=== PATIENT | female | born 1950 | race Caucasian/White ===

== ENCOUNTER 2017-11-22 01:42 | Emergency (ER) | payer MEDICARE ==
[~2017-11-22] VITALS: Ht 161.3 cm; Wt 84.5 kg
[~2017-11-22 01:42] MED LIST: AMOX500T PO; ATEN-102 PO; ATEN-104 PO
[2017-11-22 01:45] VITALS: BP 184/95; PULSE 65; RESP 18; TEMP 97.7; O2SAT 95
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
[2017-11-22] MEDS ORDERED: ZITHTAB PO (02:13)
[2017-11-22 02:46] VITALS: BP 151/96; TEMP 98.1
[2017-11-22] MEDS ORDERED: SUMA50TA2 PO (02:48)
[2017-11-22] MEDS ORDERED: METO100T PO (02:48)
== END 2017-11-22 02:49 | disposition home or self-care (01) ==
LOC: PHED 01:42
DX: J06.9 Acute upper respiratory infection, unspecified (principal); I10 Essential (primary) hypertension
CPT/HCPCS: 99283

== ENCOUNTER 2017-12-12 15:09 | Emergency (ER) | payer MEDICARE ==
[~2017-12-12] VITALS: Ht 157.5 cm; Wt 83.0 kg
[~2017-12-12 15:09] MED LIST changes: -AMOX500T PO; -ATEN-102 PO; -ATEN-104 PO; +METO100T PO; +SUMA50TA2 PO; +ZITHTAB PO
[2017-12-12 15:20] VITALS: BP 146/70; PULSE 45; RESP 16; TEMP 97.3; O2SAT 98
[2017-12-12] MEDS ORDERED: SUMAtriptan SUCCINATE 50 MG TAB PO STA (15:41)
[2017-12-12] MEDS ORDERED: KETOROLAC TROMETHAMINE 30 MG/ML (IVP) VIAL IV PUSH ONE (15:45)
[2017-12-12] MEDS ORDERED: METOCLOPRAMIDE INJ 10 MG in SODIUM CHLORIDE 0.9% INJ 50 ML IV ONE (15:45)
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
[2017-12-12 15:56] VITALS: TEMP 97.5
[2017-12-12] MEDS ORDERED: SODIUM CHLORID 0.9% 500 ML INJ 500 ML IV ONE (16:00)
[2017-12-12 16:15] VITALS: BP 160/78; PULSE 46; RESP 16; TEMP 97.5; O2SAT 100
[2017-12-12 17:23] VITALS: BP 160/68; PULSE 50; RESP 16; O2SAT 98
[2017-12-12] MEDS ORDERED: AMLO5TAB2 PO (17:25)
[2017-12-12] MEDS ORDERED: IMIT100T PO (17:27)
== END 2017-12-12 17:47 | disposition home or self-care (01) ==
LOC: PHED 15:09
DX: R51 Headache (principal); E78.00 Pure hypercholesterolemia, unspecified; I10 Essential (primary) hypertension
CPT/HCPCS: 96361; 96374; 96375; 99284; J1885; J2765; J7040